=== PATIENT | male | born 1975 | race Hispanic/Latino ===

== ENCOUNTER 2016-11-29 11:37 | Emergency (ER) | payer SELFPAY ==
[~2016-11-29 11:37] MED LIST: ISOVUE-370 76%-LOCM 1 ML ONE
[2016-11-29 12:28] LABS: #Basophils 0.1 thou/uL (0.0-0.2); #Eosinphils 0.2 thou/uL (0.0-0.7); #Lymphocytes 1.7 thou/uL (1.20-3.40); #Monocytes 0.5 thou/uL (0.11-0.59); #Neutrophils 3.6 thou/uL (1.40-6.50); %Basophils 0.8 % (0.0-1.0); %Eosinophils 3.1 % (0.0-10.0); %Lymphocytes 28.3 % (21.0-51.0); %Monocytes 8.6 % (0.0-10.0); Hematocrit 47.4 % (42.0-52.0); Mean Platelet Volume 6.4 fL (7.4-10.4); Red Blood Cell (RBC) Count 4.97 mill/uL (4.70-6.10); White Blood Cell (WBC) Count 6.1 thou/uL (4.8-10.8)
[2016-11-29 12:33] LABS: PTT 33.5 SEC (22.9-36.1); Prothrombin Time 13.8 SEC (12.0-14.7)
[2016-11-29 12:53] LABS: ALT (SGPT) 19 U/L (8-55); AST (SGOT) 20 U/L (5-34); Alkaline Phosphatase 94 U/L (40-150); Anion Gap 10 mmol/L (10-20); BUN (Urea Nitrogen) 10 mg/dL (8.9-20.6); Bilirubin, Total 0.6 mg/dL (0.2-1.2); Calc. Creatinine Clearance 0 mL/min (70-130); Calcium 9.3 mg/dL (7.8-10.44); Carbon Dioxide 28 mmol/L (22-29); Chloride 103 mmol/L (98-107); Estimated GFR-MDRD 88; Globulin 3.7 g/dL (2.4-3.5); Lipase 29 U/L (8-78)
--- NOTE | 2016-11-29 13:03 | CT ---
CT ABDOMEN AND PELVIS WITH IV CONTRAST: HISTORY: Abdominal pain. Rectal bleeding. FINDINGS: The lung bases are clear. The liver, spleen, kidneys, adrenal glands, and pancreas have a normal CT appearance. Urinary bladder is unremarkable. Lack of oral contrast limits evaluation of the bowel. There is no evidence of obstruction. Enlarge d perirectal lymph nodes measure up to 1.3 cm diameter. There is circumferential wall thickening in volving the rectum. IMPRESSION: Rectal inflammation with pararectal adenopathy. POS: [facility]
== END 2016-11-29 13:39 | disposition home or self-care (01) ==
LOC: ERS 11:37
DX: K62.89 Other specified diseases of anus and rectum (principal); B20 Human immunodeficiency virus [HIV] disease
CPT/HCPCS: 74177; 80053; 82274; 83690; 85025; 85610; 85730